=== PATIENT | female | born 1955 | race Caucasian/White ===

== ENCOUNTER 2016-05-16 07:13 | Day surgery (SDC) | payer MEDICAID ==
[~2016-05-16 07:13] MED LIST: Lactated Ringers 1,000 ML IV SCH; Sodium Chloride 0.9% 5 ML Syringe FLUSH PRN
[2016-05-16] MEDS ORDERED: Albuterol/Ipratropium 3.0-0.5 MG/3 ML Neb Soln NEB ONE (07:48)
[2016-05-16] MEDS ORDERED: Bupivacaine 0.5%/EPINEPHrine 1:200,000 30 ML SDV ONE ×2 (08:00→08:56)
[2016-05-16] MEDS ORDERED: Lactated Ringers 1,000 ML ONE (08:03)
[2016-05-16] MEDS ORDERED: Propofol 200 MG/20 ML SDV ONE ×2 (08:03→08:20)
[2016-05-16] MEDS ORDERED: ceFAZolin 1 GM Vial ONE ×4 (08:03→09:11)
[2016-05-16] MEDS ORDERED: fentaNYL 250 MCG/5 ML SDV ONE ×2 (08:03→08:20)
[2016-05-16] MEDS ORDERED: Midazolam 1 MG/ML 2 ML SDV ONE ×2 (08:03→08:20)
[2016-05-16] MEDS ORDERED: Neostigmine Methylsulfate 10 MG/10 ML MDV ONE ×2 (08:20→09:16)
[2016-05-16] MEDS ORDERED: Succinylcholine 200 MG/10 ML MDV ONE (08:20)
[2016-05-16] MEDS ORDERED: Dexamethasone 4 MG/ML SDV ONE ×2 (08:20→09:16)
[2016-05-16] MEDS ORDERED: Glycopyrrolate 0.2 MG/ML 5 ML MDV ONE (08:20)
[2016-05-16] MEDS ORDERED: Ondansetron 4 MG/2 ML SDV ONE (08:20)
[2016-05-16] MEDS ORDERED: Rocuronium 50 MG/5 ML Vial ONE (08:20)
[2016-05-16] MEDS ORDERED: ePHEDrine 50 MG/ML SDV IV ONE (08:20)
[2016-05-16] MEDS ORDERED: ePHEDrine 50 MG/ML SDV ONE (09:08)
[2016-05-16] MEDS ORDERED: Water For Injection, Sterile 20 ML ONE (09:08)
[2016-05-16] MEDS ORDERED: Water For Injection, Sterile 20 ML SDV ONE (09:12)
--- NOTE | 2016-05-16 10:24 | PCM.OPNOTE ---
- General Post-Op/Procedure Note Date of Surgery/Procedure: 05/16/16 Operative Procedure(s): Rt Inguinal Herniorraphy with mesh. Primary Surgeon: Alondra Diaz Complications: None Free Text/Narrative:: INFORMED CONSENT: The patient is here today for elective Rt inguinal herniorrhaphy. The operative procedure, anesthesia and risks of both are completely explained to the patient. These include infection, pain, bleeding, recurrence, numbness and other unknown complications. The patient wished to proceed. The patient was kept in the supine position and the Rt inguinal area was thoroughly prepped and draped in the usual fashion. An incision was made over the Rt inguinal area, parallel to the inguinal ligament. The skin incision was deepened through the subcutaneous tissue, deep fascia and the external oblique was opened along the line of the skin incision. The cord structures were identified and kept out of harms way. We also identified the ilioinguinal nerve and the inguinal branch of the genitofemoral nerve. These two structures were kept out of harms way as well. We then dissected the medial portion of the cord and there was a fairly significant hernial sac which was opened. The contents were mostly omental tissue that was pushed back into the abdominal cavity. A high ligation of the sac was performed with 0 silk sutures. The excess sac was excised and sent away for histology. Palpation of the medial portion of the floor indicated a defect. A Marlex mesh was then cut down to size and placed to fortify the defect of the floor and the direct portion of the hernia. The mesh was attached to the conjoined tendon superiorly, Parish's ligament medially and the reflected portion of the inguinal ligament inferiorly. The wound was irrigated, small bleeders were cauterized and the external oblique was closed over the cord structures using running 0 silk sutures. The subcutaneous tissue was closed with 0 Polysorb suture and the skin was closed using 4.0 Polysorb suture. A Sterile pressure dressing was applied, the patient tolerated the procedure well and there were no operative complications. Blood loss was negligible. Sponge, needle and instrument count was correct. The patient was transferred to the recovery room in excellent condition.
[2016-05-16 11:24] VITALS: BP 110/71
== END 2016-05-16 12:26 | disposition home or self-care (01) ==
LOC: KA.SDS 07:13
PROVIDERS: ATTEND Family Medicine
DX: K40.90 Unilateral inguinal hernia, without obstruction or gangrene, not specified as recurrent (principal); I10 Essential (primary) hypertension; Z88.0 Allergy status to penicillin; Z90.710 Acquired absence of both cervix and uterus; Z98.890 Other specified postprocedural states; F17.210 Nicotine dependence, cigarettes, uncomplicated
CPT/HCPCS: 49505; 86803; 87340; 87389; 87522; 94640; J0330; J0690; J1100; J2250; J2405; J2704; J2710; J3010; J7120; 36415; C1781; J3490

== ENCOUNTER 2017-06-10 09:39 | Emergency (ER) | payer MEDICAID, OTHER, SELFPAY ==
[2017-06-10 09:55] VITALS: BP 139/88
[2017-06-10 10:32] LABS: CHLORIDE,CL 99 mmol/L (98-115); SODIUM,NA 137 mmol/L (136-145)
--- NOTE | 2017-06-10 11:17 | EDM.PDOC ---
ED HPI GENERAL MEDICAL PROBLEM - General Chief Complaint: General Stated Complaint: WEAK, FEELS FEVERISH Time Seen by Provider: 06/10/17 10:20 Source of Information: Reports: Patient History Limitations: Reports: No Limitations - History of Present Illness INITIAL COMMENTS - FREE TEXT/NARRATIVE: Patient presents with body aches, chills, cough, head congestion "feels like I' ve been hit by a truck" symptoms for the last 3 days. There were two people at work recently with similar symptoms that were positive for Influenza A. She has smoked for 47 years and so far has never had any lung problems like COPD or emphysema. Treatments HEALTHCARE OR MEDICAL: Reports: Acetaminophen, NSAIDS - Related Data Allergies Allergy/AdvReac Type Severity Reaction Status Date / Time Penicillins Allergy Cannot Verified 06/10/17 11:03 Remember Home Meds: Home Meds Metoprolol Tartrate 50 mg PO DAILY 09/20/15 [History] Past Medical History HEENT History: Reports: Impaired Vision Other HEENT History: history of eye infection that caused her to have difficulty seeing and she unable to work for 3 weeks in March 2015 Cardiovascular History: Reports: Hypertension Gastrointestinal History: Reports: Cirrhosis, GERD, Hiatal Hernia, Other (See Below) Other Gastrointestinal History: diverticulitis Genitourinary History: Reports: Pyelonephritis 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: Psychiatric History: Reports: Addiction, Depression Endocrine/Metabolic History: Reports: Vitamin D Deficiency - Infectious Disease History Infectious Disease History: Reports: Chicken Pox, Hepatitis C, Herpes, Measles, Mumps - Past Surgical History Female Surgical History: Reports: Hysterectomy, Salpingo-Oophorectomy Musculoskeletal Surgical History: Reports: Other (See Below) Social & Family History - Family History Family Medical History: Noncontributory HEENT: Reports: None Cardiac: Reports: Other (See Below) Respiratory: Reports: None GI: Reports: None : Reports: None OBGYN: Reports: None Musculoskeletal: Reports: None Neurological: Reports: None Psychiatric: Reports: None Endocrine/Metabolic: Reports: None Hematologic: Reports: None Immunologic: Reports: None Dermatologic: Reports: None Oncologic: Reports: Breast (Sister of breast cancer) - Tobacco Use Smoking Status *Q: Current Every Day Smoker Years of Tobacco use: 47 Packs/Tins Daily: 1 Used Tobacco, but Quit: No Month/Year Tobacco Last Used: mar Second Hand Smoke Exposure: No - Caffeine Use Caffeine Use: Reports: Coffee, Soda, Tea - Alcohol Use Days Per Week of Alcohol Use: 0 - Recreational Drug Use Recreational Drug Use: No ED ROS GENERAL - Review of Systems Review Of Systems: See Below Constitutional: Reports: Fever, Chills, Malaise. Denies: Weakness, Diaphoresis HEENT: Reports: Sinus Problem. Denies: Ear Pain, Throat Pain, Vision Change Respiratory: Reports: Cough, Sputum (started yesterday). Denies: Shortness of Breath, Wheezing Cardiovascular: Denies: Chest Pain, Lightheadedness, Syncope Endocrine: Reports: No Symptoms GI/Abdominal: Denies: Abdominal Pain, Vomiting : Reports: Frequency (increased the last few days). Denies: Dysuria, Flank Pain Musculoskeletal: Reports: No Symptoms Skin: Denies: Cyanosis, Jaundice, Mottled, Pallor, Diaphoresis Neurological: Denies: Confusion, Dizziness, Seizure, Syncope, Trouble Speaking, Difficulty Walking Psychiatric: Denies: Agitation, Anxiety, Confusion ED EXAM, GENERAL - Physical Exam Exam: See Below Exam Limited By: No Limitations General Appearance: Alert, WD/WN, No Apparent Distress Eye Exam: Bilateral Eye: EOMI, Normal Inspection, PERRL Ears: Normal External Exam, Hearing Grossly Normal Nose: No Blood, Other (pt sounds "stuffy" but not tender to palpation over frontal or maxillary sinuses) Throat/Mouth: Normal Inspection, Normal Lips, Normal Voice, No Airway Compromise Head: Atraumatic, Normocephalic Neck: Normal Inspection, Full Range of Motion Respiratory/Chest: No Respiratory Distress, Lungs Clear, Normal Breath Sounds, No Accessory Muscle Use Cardiovascular: Regular Rate, Rhythm, No Murmur GI/Abdominal: Soft, Non-Tender, No Organomegaly, No Distention Back Exam: No: CVA Tenderness (L), CVA Tenderness (R) Extremities: Normal Inspection, Normal Range of Motion Neurological: Alert, Oriented, Normal Cognition, Normal Gait, No Motor/Sensory Deficits Psychiatric: Normal Affect, Normal Mood Skin Exam: Warm, Dry, Intact, Normal Color, No Rash Course - Vital Signs Last Recorded V/S: Last Vital Signs Temp 97.7 F 06/10/17 09:52 Pulse 102 H 06/10/17 09:52 Resp 20 06/10/17 09:52 BP 139/88 06/10/17 09:52 Pulse Ox 96 06/10/17 09:52 - Orders/Labs/Meds Orders: Active Orders 24 hr Category Date Time Status Chest 2V [CR] Stat Exams 06/10/17 10:01 Taken INFLUENZA A+B AG SCREEN [RM] Stat Lab 06/10/17 10:01 Ordered UA W/MICROSCOPIC [URIN] Stat Lab 06/10/17 11:14 Ordered Labs: Laboratory Tests 06/10/17 06/10/17 06/10/17 Range/Units 10:00 10:00 11:14 WBC 13.3 H (5.0-10.0) 10^3/uL RBC 5.35 (3.80-5.50) 10^6/uL Hgb 16.1 H D (12.0-16.0) g/dL Hct 49.2 H (37.0-47.0) % MCV 91.9 (82.0-92.0) fL MCH 30.1 (27.0-31.0) pg MCHC 32.8 (32.0-36.0) g/dL RDW 12.5 (11.5-14.5) % Plt Count 211 D (150-300) 10^3/uL MPV 8.0 (7.4-10.4) fL Neut % (Auto) 84.0 H (50.0-70.0) % Lymph % (Auto) 9.5 L (20.0-40.0) % Howard % (Auto) 6.1 (2.0-8.0) % Eos % (Auto) 0.1 L (1.0-3.0) % Baso % (Auto) 0.3 (0.0-1.0) % Neut # (Auto) 11.2 H (2.5-7.0) 10^3/uL Lymph # (Auto) 1.3 (1.0-4.0) 10^3/uL Howard # (Auto) 0.8 (0.1-0.8) 10^3/uL Eos # (Auto) 0.0 L (0.1-0.3) 10^3/uL Baso # (Auto) 0.0 (0.0-0.1) 10^3/uL Sodium 137 (136-145) mmol/L Potassium 3.9 (3.3-5.3) mmol/L Chloride 99 (98-115) mmol/L Carbon Dioxide 26.3 (21.0-32.0) mmol/L BUN 5 L (6-25) mg/dL Creatinine 0.51 (0.51-1.17) mg/dL Est Cr Clr Drug Dosing 91.62 mL/min Estimated GFR (MDRD) > 60 mL/min Glucose 132 H (70-110) mg/dL Calcium 9.3 (8.7-10.3) mg/dL Total Bilirubin 0.7 (0.2-1.0) mg/dL AST 21 (15-37) U/L ALT 19 (12-78) U/L Alkaline Phosphatase 115 (46-116) IU/L Total Protein 9.1 H (6.4-8.2) g/dL Albumin 4.07 (3.00-4.80) g/dL Specimen Type Urincc Urine Color Yellow (YELLOW) Urine Appearance Clear (CLEAR) Urine pH 6.0 (5.0-9.0) Ur Specific [place] 1.020 (1.005-1.030) Urine Protein Negative (NEGATIVE) mg/dL Urine Glucose (UA) Negative (NEGATIVE) mg/dL Urine Ketones 15 H (NEGATIVE) mg/dL Urine Occult Blood Small H (NEGATIVE) Urine Nitrite Negative (NEGATIVE) Urine Bilirubin Small H (NEGATIVE) Urine Urobilinogen 1.0 (0.2-1.0) E.U./dL Ur Leukocyte Esterase Negative (NEGATIVE) Urine RBC 10-20 H /HPF Urine WBC 5-10 H /HPF Ur Epithelial Cells Moderate H /LPF Urine Bacteria Occasional (NONE TO FEW) /HPF - Re-Assessments/Exams Free Text/Narrative Re-Assessment/Exam: 06/10/17 11:58 WBC is 13.3 with ANC of 11.2. CXR shows a right upper lobe nodule but no infiltrates. UA shows no evidence of UTI. Discussed findings and recommendations. I advised getting a chest CT today to further evaluate the lung nodule but patient refuses to have the contrast dye right now since it has made her sick in the past. She will follow up with her PCP, when the current sinus and respiratory infection clears, for this workup. Will treat the sinus infection and bronchitis/(possible early pneumonia) with Omnicef. Patient remained stable throughout ER course and was discharged to home. Departure - Departure Time of Disposition: 11:55 Disposition: Home, Self-Care 01 Condition: Good Clinical Impression: Lung nodule, solitary Acute sinus infection Qualifiers: Sinusitis location: unspecified location Recurrence: non-recurrent Qualified Code(s): J01.90 - Acute sinusitis, unspecified Acute bronchitis Qualifiers: Bronchitis organism: unspecified organism Qualified Code(s): J20.9 - Acute bronchitis, unspecified - Discharge Information Instructions: Sinusitis, Adult, [id number] Referrals: Zeenat Varma EXHIBIT DISPLAY REPRESENTATIVE [Primary Care Provider] - Forms: ED Department Discharge Additional Instructions: 1. Take the antibiotic as directed. 2. Drink 8 cups of water daily. 3. Follow up with your PCP in 1-2 weeks, after the sinuses and cough have cleared up, for further evaluation of your right lung nodule. 4. Return to ER as needed. - My Orders Last 24 Hours: My Active Orders 06/10/17 10:01 Chest 2V [CR] Stat INFLUENZA A+B AG SCREEN [RM] Stat 06/10/17 11:14 UA W/MICROSCOPIC [URIN] Stat - Assessment/Plan Last 24 Hours: My Active Orders 06/10/17 10:01 Chest 2V [CR] Stat INFLUENZA A+B AG SCREEN [RM] Stat 06/10/17 11:14 UA W/MICROSCOPIC [URIN] Stat
== END 2017-06-10 12:05 | disposition home or self-care (01) ==
LOC: KA.ED 09:39
DX: R91.1 Solitary pulmonary nodule (principal); J01.90 Acute sinusitis, unspecified; J02.9 Acute pharyngitis, unspecified; K21.9 Gastro-esophageal reflux disease without esophagitis; F17.210 Nicotine dependence, cigarettes, uncomplicated; I10 Essential (primary) hypertension; Z88.0 Allergy status to penicillin; Z79.899 Other long term (current) drug therapy; Z90.710 Acquired absence of both cervix and uterus
CPT/HCPCS: 36415; 71046; 80053; 81001; 85025; 87804; 99283

== ENCOUNTER 2022-08-24 11:27 | Emergency (ER) | payer MEDICARE, MEDICAID ==
[2022-08-24 11:39] VITALS: BP 123/82; PULSE 72
== END 2022-08-24 12:45 | disposition home or self-care (01) ==
LOC: KA.ED 11:27
DX: M20.011 Mallet finger of right finger(s) (principal); I10 Essential (primary) hypertension; Z88.0 Allergy status to penicillin; Z79.899 Other long term (current) drug therapy
CPT/HCPCS: 73140-F7; 99283

== ENCOUNTER 2022-10-14 08:53 | Emergency (ER) | payer MEDICARE, MEDICAID ==
[2022-10-14 09:36] VITALS: BP 120/75; PULSE 56
== END 2022-10-14 10:15 | disposition home or self-care (01) ==
LOC: KA.ED 08:53
DX: R04.0 Epistaxis (principal); I10 Essential (primary) hypertension; Z88.0 Allergy status to penicillin; Z72.0 Tobacco use
CPT/HCPCS: 99283